=== PATIENT | female | born 1955 | race Caucasian/White ===

== ENCOUNTER 2016-06-09 10:14 | Outpatient (CLI) | payer OTHER, MEDICARE ==
[2016-06-09 11:06] LABS: AST (SGOT) 18 U/L (5-34); Bilirubin, Total 0.4 mg/dL (0.2-1.2); Calcium 9.6 mg/dL (7.8-10.44); Chloride 104 mmol/L (98-107); Cholesterol 155 mg/dL (< 200 Desired); Potassium 4.2 mmol/L (3.5-5.1); Sodium 141 mmol/L (136-145); Triglycerides 163 mg/dL (Less than 150)
[2016-06-09 11:38] LABS: ALT (SGPT) 19 U/L (0-55); Albumin 3.9 g/dL (3.4-4.8); Alkaline Phosphatase 101 U/L (40-150); BUN (Urea Nitrogen) 16 mg/dL (9.8-20.1); Calc. Creatinine Clearance 0 mL/min (70-130); Carbon Dioxide 24 mmol/L (23-31); Estimated GFR-MDRD 74; Globulin 3.3 g/dL (2.4-3.5); Glucose 173 mg/dL (80-115); HDL Cholesterol 62 mg/dL (>60 Neg Risk); Protein, Total 7.2 g/dL (5.8-8.1)
[2016-06-09 12:43] LABS: Anion Gap 17 mmol/L (10-20)
[2016-06-09 12:44] LABS: LDL Cholesterol, Calculated 60 mg/dL
== END 2016-06-09 10:15 | disposition home or self-care (01) ==
LOC: BURLAB 10:14
PROVIDERS: ATTEND Internal Medicine Cardiovascular Disease
DX: E78.00 Pure hypercholesterolemia, unspecified (principal); Z95.1 Presence of aortocoronary bypass graft; Z95.5 Presence of coronary angioplasty implant and graft
CPT/HCPCS: 36415; 80053; 80061

== ENCOUNTER 2016-12-01 09:59 | Outpatient (CLI) | payer OTHER, MEDICARE ==
[2016-12-01 11:46] LABS: ALT (SGPT) 24 U/L (8-55); AST (SGOT) 18 U/L (5-34); Albumin 3.7 g/dL (3.4-4.8); Alkaline Phosphatase 110 U/L (40-150); Anion Gap 18 mmol/L (10-20); BUN (Urea Nitrogen) 19 mg/dL (9.8-20.1); Bilirubin, Total 0.3 mg/dL (0.2-1.2); Calc. Creatinine Clearance 0 mL/min (70-130); Calcium 9.5 mg/dL (7.8-10.44); Carbon Dioxide 21 mmol/L (23-31); Chloride 106 mmol/L (98-107); Cholesterol 113 mg/dl (< 200 Desired); Estimated GFR-MDRD 78; Globulin 3.2 g/dL (2.4-3.5); Glucose 152 mg/dL (80-115); HDL Cholesterol 57 mg/dL (>60 Neg Risk); LDL Cholesterol, Calculated 19 mg/dL; Potassium 4.8 mmol/L (3.5-5.1); Protein, Total 6.9 g/dL (6.0-8.3); Sodium 140 mmol/L (136-145); Triglycerides 185 mg/dL (Less than 150)
== END 2016-12-01 10:00 | disposition home or self-care (01) ==
LOC: BURLAB 09:59
PROVIDERS: ATTEND Internal Medicine Cardiovascular Disease
DX: E78.00 Pure hypercholesterolemia, unspecified (principal)
CPT/HCPCS: 36415; 80053; 80061

== ENCOUNTER 2017-07-28 13:34 | Outpatient (CLI) | payer OTHER, MEDICARE ==
--- NOTE | 2017-07-28 17:46 | RAD ---
RIGHT FOOT THREE VIEWS: 07/28/2017 FINDINGS: No fracture or periosteal reaction is seen. The joints are unremarkable. There are no erosions seen around the joints. There is as light pes cavus deformity. The first MTP joint may have a little sw elling medial to it, but the joint itself appears normal. A very tiny calcaneal spur is suggested. IMPRESSION: No acute bony findings. POS: [facility]
== END 2017-07-28 13:35 | disposition home or self-care (01) ==
LOC: BURRAD 13:34
PROVIDERS: ATTEND Family Medicine
DX: M79.671 Pain in right foot (principal)

== ENCOUNTER 2017-08-03 09:54 | Observation (INO) | payer OTHER, MEDICARE ==
[2017-08-03 10:49] LABS: #Basophils 0.1 thou/uL (0.0-0.2); #Eosinphils 0.1 thou/uL (0.0-0.7); #Lymphocytes 1.6 thou/uL (1.20-3.40); #Monocytes 0.4 thou/uL (0.11-0.59); #Neutrophils 5.7 thou/uL (1.40-6.50); %Basophils 0.9 % (0.0-1.0); %Eosinophils 1.7 % (0.0-10.0); %Lymphocytes 20.3 % (21.0-51.0); %Monocytes 5.4 % (0.0-10.0); %Neutrophils 71.7 % (42.0-75.0); Hemoglobin 12.7 g/dL (12.0-16.0); Mean Corpuscular HGB CONC 32.9 g/dL (32.0-36.0); Mean Corpuscular Hemoglobin 28.5 pg (27.0-31.0); Mean Corpuscular Volume 86.7 fl (81.0-99.0); Mean Platelet Volume 7.5 fL (7.4-10.4); Platelet Count 280 thou/uL (130-400); RBC Distribution Width 12.5 % (11.5-14.5); Red Blood Cell (RBC) Count 4.45 mill/uL (4.20-5.40); White Blood Cell (WBC) Count 7.9 thou/uL (4.8-10.8)
[2017-08-03 11:07] LABS: ALT (SGPT) 16 U/L (8-55); AST (SGOT) 20 U/L (5-34); Alkaline Phosphatase 90 U/L (40-150); Anion Gap 16 mmol/L (10-20); BUN (Urea Nitrogen) 13 mg/dL (9.8-20.1); Bilirubin, Total 0.4 mg/dL (0.2-1.2); Calc. Creatinine Clearance 0 mL/min (70-130); Calcium 10.1 mg/dL (7.8-10.44); Carbon Dioxide 29 mmol/L (23-31); Chloride 99 mmol/L (98-107); Estimated GFR-MDRD 68; Globulin 3.9 g/dL (2.4-3.5); Glucose 186 mg/dL (80-115); Potassium 5.4 mmol/L (3.5-5.1); Protein, Total 7.9 g/dL (6.0-8.3); Sodium 139 mmol/L (136-145)
[2017-08-03 11:09] LABS: CKMB 0.7 ng/mL (0-6.6); Troponin I Less than 0.010 ng/mL (< 0.028)
[2017-08-03] MEDS ORDERED: Furosemide 100 MG/10 ML VIAL ONE (11:11)
[2017-08-03 11:17] LABS: Bilirubin Negative (Negative); Blood, Urine Trace (Negative); Clarity Clear (Clear); Glucose, Urine (Dipstick) Negative (Negative); Leukocyte Negative (Negative); Nitrite Negative (Negative); Protein, Urine (Dipstick) Negative (Neg-Trace); Specific Gravity, Urine 1.015 (1.005-1.030); Urobilinogen 0.2 mg/dL (0.2-1.0)
[2017-08-03 11:19] LABS: Bacteria/HPF Rare-Few HPF (None Seen); RBC/HPF 0-3 HPF (0-3); Squamous Epithelial 0-3 HPF (0-3); WBC/HPF 0-3 HPF (0-3)
[2017-08-03] MEDS ORDERED: Acetaminophen 325 MG TAB PO PRN (13:31)
[2017-08-03] MEDS ORDERED: Ondansetron HCl/PF 4 MG/2 ML Vial IVP PRN (13:31)
[2017-08-03] MEDS ORDERED: TRAMADOL HCL PO PRN (13:51)
[2017-08-03] MEDS ORDERED: TABL PO PRN (13:51)
[2017-08-03] MEDS ORDERED: ACETAMINOPHEN PO PRN (13:51)
[2017-08-03] MEDS ORDERED: [UNRECOGNIZED DRUG - OTHER] PO PRN (13:51)
[2017-08-03] MEDS ORDERED: EVOLOCUMAB SQ SCH (14:00)
[2017-08-03] MEDS: Ondansetron ODT 4 MG TAB SL PRN (16:05)
--- NOTE | 2017-08-03 17:05 | RAD ---
PORTABLE CHEST: Date: 08/03/17 An AP portable film at 1038 hours is compared with a 06/25/17 study from [facility] al. FINDINGS: The AICD remains in place. Mild cardiomegaly is present, but there are no convincing findings of CHF. No effusions or infiltrates were seen. Trachea is midline. IMPRESSION: Mild cardiomegaly. POS: HOME
[2017-08-03 17:09] VITALS: BMI 614550.6
[2017-08-03] MEDS: Carvedilol 25 MG TAB PO SCH (17:49)
--- NOTE | 2017-08-03 19:05 | HP ---
DATE OF ADMISSION: 08/03/2017 CHIEF COMPLAINT: Dyspnea. HISTORY OF PRESENT ILLNESS: 62-year-old female with underlying history of combined systolic and diastolic congestive heart failure with a fairly significant cardiac history requiring cardiac stents, cardiac bypass and most recently in May of this year, ICD and pacemaker placement. She is followed by Dr. Rascon with next appointment scheduled for 09/02/2017. She presented to [facility] Emergency Department this morning with complaints of worsening dyspnea over the last 2-3 days. She is a nonsmoker with no significant pulmonary history. She states that she weighs herself regularly at home and does not overindulge on fluid intake. She denies noticing any significant increase in her weight. Workup in the emergency department revealed a normal CBC and cardiac enzymes; however, her BNP was elevated at 536. Urinalysis was normal. Chest x-ray revealed mild cardiomegaly. Patient is normally on 40 mg p.o. Lasix daily at home and reports good compliance with this medication. She normally sleeps either in her recliner or in her bed with three pillows. The patient has been admitted for an Obs admission for CHF exacerbation and has been started on IV Lasix accordingly. PAST MEDICAL HISTORY: Includes hypertension, type 2 diabetes mellitus. Combined systolic and diastolic congestive heart failure, anxiety, depression, insomnia. PAST SURGICAL HISTORY: Appendectomy, total hysterectomy, cardiac bypass, breast reduction, cholecystectomy, heart catheterization and 2 stents in 2015. ICD and pacemaker placement 05/2017. SOCIAL HISTORY: Nonsmoker. No ETOH or illicit drug use. She lives at home with her . ALLERGIES: BACTRIM, CIPRO, KEFLEX. FAMILY HISTORY: Noncontributory. CURRENT MEDICATIONS: Metformin 500 mg p.o. daily, Zoloft 50 mg p.o. daily, Elavil 25 mg p.o. at bedtime, Brilinta 90 mg p.o. b.i.d., furosemide 40 mg p.o. daily, amlodipine 5 mg p.o. daily, Coreg 25 mg p.o. b.i.d., lisinopril 20 mg p.o. b.i.d., Repatha 140 mg per mL, Zofran 4 mg sublingual q.8 hours p.r.n., Ambien 10 mg p.o. at bedtime. REVIEW OF SYSTEMS: General: The patient denies fever, chills or diaphoresis. Ear, Nose, and Throat: Denies sore throat, nasal drainage or congestion. Cardiovascular: Denies chest pain or palpitations. Respiratory: Complains of shortness of breath. Denies cough. Gastrointestinal: Denies abdominal pain, nausea, vomiting, diarrhea or constipation. Genitourinary: Denies dysuria or hematuria. Musculoskeletal: Denies joint swelling. Dermatologic: Denies rash. Neurologic: Denies headache. LABORATORY DATA: White blood cell count 7.9, H&H is 12.7 and 38.6, platelets 280. Sodium 139, potassium 5.4, BUN is 13, creatinine 0.84, GFR of 68, glucose 186. Normal LFTs, normal cardiac enzymes. BNP 536.1. UA shows no bacteria. IMAGING: Chest x-ray shows mild cardiomegaly with no effusions or infiltrates. PHYSICAL EXAMINATION: VITAL SIGNS: Temperature is 98.2, pulse is 68, respiratory rate is 18, oxygen is 99% on 2 liters, blood pressure is 164/80. GENERAL: Patient is alert and oriented, in no acute distress, obese. HEENT: Eyes, pupils are equal, round, and reactive to light. Extraocular muscles are intact. Sclerae are clear. Head, eyes, ears, nose and throat is within normal limits. NECK: Supple, no lymphadenopathy, no meningeal signs. CARDIOVASCULAR: Regular rate and rhythm, no murmurs, rubs or gallops. LUNGS: Clear to auscultation bilaterally without wheezes, rales or rhonchi. ABDOMEN: Soft, nontender to palpation. No organomegaly. EXTREMITIES: No clubbing, cyanosis or edema. SKIN: Healed approximately 6 cm surgical site to the left chest wall. No rash. NEUROLOGIC: No focal deficits. Cranial nerves II-XII are grossly intact. ASSESSMENT AND PLAN: 1. Congestive heart failure exacerbation. We will continue the patient's IV Lasix with daily weight and fluid restriction to 1.5 liters daily. We will follow up BNP in the morning. Chest x-ray reassuring. 12/31/16 TTE shows normal left ventricular dimension, moderately reduced left ventricular function; left ventricular EF 30-35%; apical wall akinesis; mild mitral valve regurgitation, MV inflow pattern consistent with diastolic dysfunction; mild tricuspid valve regurgitation. 2. Hypertension. Patient is hemodynamically stable. We will resume her usual home blood pressure medications. 3. Type 2 diabetes mellitus. The patient has been started on consistent carbohydrate diet. We will resume metformin. Plan for a.c. and at bedtime, glucose checks. 4. Anxiety with depression. We will continue patient's SSRI. 5. Obesity. The patient counseled on the need for weight loss. 6. Hyperkalemia. We will reevaluate BNP in the morning expect that this will normalize with her receiving Lasix. 7. Prophylaxis. Patient is on Brilinta and we will add famotidine for gastrointestinal prophylaxis. D/C summary: Pt was admitted overnight and effectively diuresed lowering her BNP into the 230's. Her respiratory status is back to baseline and she is satting well on room air. She feels amenable to d/c home and continue her usual medications. She may f/u in clinic with myself and her ceramic chemist, Dr. Rascon. CHAD
[2017-08-03] MEDS ORDERED: TICAGRELOR 90 MG PO SCH (21:00)
[2017-08-03] MEDS ORDERED: Zolpidem Tartrate 5 MG TAB PO SCH (21:00)
[2017-08-03] MEDS ORDERED: Amitriptyline HCl 25 MG TAB PO SCH (21:00)
[2017-08-03] MEDS: Furosemide 40 MG/4 ML VIAL SLOW IVP SCH (21:02)
[2017-08-03] MEDS: Lisinopril 10 MG TAB PO SCH (21:03)
[2017-08-03] MEDS: Famotidine 20 MG TAB PO SCH (21:03)
[2017-08-03] MEDS: TICAGRELOR 90 MG TABLET PO SCH (21:06)
[2017-08-04] MEDS: Indomethacin 25 mg Capsule PO SCH ×2 (00:20→08:19)
[2017-08-04] MEDS: Ondansetron ODT 4 MG TAB SL PRN (00:26)
[2017-08-04] MEDS: Furosemide 40 MG/4 ML VIAL SLOW IVP SCH (04:11)
[2017-08-04 05:42] LABS: #Basophils 0.1 thou/uL (0.0-0.2); #Eosinphils 0.1 thou/uL (0.0-0.7); #Lymphocytes 2.2 thou/uL (1.20-3.40); #Monocytes 0.8 thou/uL (0.11-0.59); #Neutrophils 7.2 thou/uL (1.40-6.50); %Basophils 0.8 % (0.0-1.0); %Eosinophils 1.3 % (0.0-10.0); %Monocytes 8.1 % (0.0-10.0); %Neutrophils 68.9 % (42.0-75.0); Hemoglobin 14.4 g/dL (12.0-16.0); Mean Corpuscular HGB CONC 34.8 g/dL (32.0-36.0); Mean Corpuscular Volume 86.2 fl (81.0-99.0); Mean Platelet Volume 7.2 fL (7.4-10.4); Platelet Count 279 thou/uL (130-400); RBC Distribution Width 12.4 % (11.5-14.5); Red Blood Cell (RBC) Count 4.81 mill/uL (4.20-5.40); White Blood Cell (WBC) Count 10.4 thou/uL (4.8-10.8)
[2017-08-04 05:47] LABS: Anion Gap 18 mmol/L (10-20); BUN (Urea Nitrogen) 12 mg/dL (9.8-20.1); Calc. Creatinine Clearance 109 mL/min (70-130); Calcium 10.4 mg/dL (7.8-10.44); Carbon Dioxide 25 mmol/L (23-31); Chloride 98 mmol/L (98-107); Estimated GFR-MDRD 67; Glucose 134 mg/dL (80-115); Potassium 4.1 mmol/L (3.5-5.1); Sodium 137 mmol/L (136-145)
[2017-08-04] MEDS ORDERED: metFORMIN 500 MG TAB PO SCH (08:00)
[2017-08-04] MEDS: Lisinopril 10 MG TAB PO SCH (08:16)
[2017-08-04] MEDS: Famotidine 20 MG TAB PO SCH (08:17)
[2017-08-04] MEDS: Carvedilol 25 MG TAB PO SCH (08:17)
[2017-08-04] MEDS: TICAGRELOR 90 MG TABLET PO SCH (08:18)
[2017-08-04] MEDS ORDERED: Non-Formulary Item 1 EACH (Sertraline Hcl [Zoloft] 50 MG) PO SCH (09:00)
[2017-08-04] MEDS ORDERED: Aspirin 81 mg Enteric Coated Tablet PO SCH (09:00)
[2017-08-04] MEDS ORDERED: Amlodipine 5 MG TAB PO SCH (09:00)
[2017-08-04] MEDS ORDERED: Colchicine 0.6 MG TAB PO SCH (09:00)
[2017-08-04] MEDS ORDERED: COLCHICINE PO SCH (09:00)
[2017-08-04 10:01] VITALS: BP 130/70; TEMP 98
== END 2017-08-04 08:50 | disposition home or self-care (01) ==
LOC: BURERS 09:54 → BURMED 11:40
PROVIDERS: ADMIT Family Medicine; ATTEND Family Medicine
DX: I11.0 Hypertensive heart disease with heart failure (principal); I50.41 Acute combined systolic (congestive) and diastolic (congestive) heart failure; E11.9 Type 2 diabetes mellitus without complications; F41.9 Anxiety disorder, unspecified; F32.9 Major depressive disorder, single episode, unspecified; G47.00 Insomnia, unspecified; E66.9 Obesity, unspecified; E87.5 Hyperkalemia; Z87.891 Personal history of nicotine dependence; Z95.1 Presence of aortocoronary bypass graft; Z95.5 Presence of coronary angioplasty implant and graft; Z95.810 Presence of automatic (implantable) cardiac defibrillator; Z79.84 Long term (current) use of oral hypoglycemic drugs; Z79.02 Long term (current) use of antithrombotics/antiplatelets; Z79.899 Other long term (current) drug therapy; Z91.018 Allergy to other foods; Z88.1 Allergy status to other antibiotic agents; Z88.2 Allergy status to sulfonamides; Z88.8 Allergy status to other drugs, medicaments and biological substances
CPT/HCPCS: 36415; 36416; 71045; 80048; 80053; 81003; 81015; 82553; 83880; 84484; 85025; 93005; 94760; 96374; 96376; A4216; G0378; J1940; Q0162

== ENCOUNTER 2017-10-04 11:52 | Emergency (ER) | payer OTHER, MEDICARE ==
[2017-10-04 12:35] LABS: #Basophils 0.1 thou/uL (0.0-0.2); #Eosinphils 0.1 thou/uL (0.0-0.7); #Lymphocytes 1.3 thou/uL (1.20-3.40); #Monocytes 0.5 thou/uL (0.11-0.59); #Neutrophils 6.3 thou/uL (1.40-6.50); %Basophils 0.8 % (0.0-1.0); %Eosinophils 1.5 % (0.0-10.0); %Lymphocytes 15.3 % (21.0-51.0); %Monocytes 5.9 % (0.0-10.0); %Neutrophils 76.6 % (42.0-75.0); Hemoglobin 10.7 g/dL (12.0-16.0); Mean Corpuscular HGB CONC 35.1 g/dL (32.0-36.0); Mean Corpuscular Hemoglobin 28.5 pg (27.0-31.0); Mean Corpuscular Volume 81.4 fL (78.0-98.0); Mean Platelet Volume 6.5 fL (7.4-10.4); Platelet Count 267 thou/uL (130-400); RBC Distribution Width 13.2 % (11.5-14.5); Red Blood Cell (RBC) Count 3.77 mill/uL (4.20-5.40); White Blood Cell (WBC) Count 8.3 thou/uL (4.8-10.8)
[2017-10-04] MEDS ORDERED: Nitroglycerin 50 MG/250 ML BOT 250 ML ONE (12:39)
[2017-10-04] MEDS ORDERED: Furosemide 100 MG/10 ML VIAL ONE (12:39)
[2017-10-04 12:50] LABS: ALT (SGPT) 12 U/L (8-55); AST (SGOT) 12 U/L (5-34); Albumin 3.7 g/dL (3.4-4.8); Alkaline Phosphatase 97 U/L (40-150); Anion Gap 16 mmol/L (10-20); BUN (Urea Nitrogen) 21 mg/dL (9.8-20.1); Bilirubin, Total 0.3 mg/dL (0.2-1.2); Calc. Creatinine Clearance 0 mL/min (70-130); Carbon Dioxide 28 mmol/L (23-31); Chloride 105 mmol/L (98-107); Estimated GFR-MDRD 66; Globulin 3.8 g/dL (2.4-3.5); Glucose 118 mg/dL (80-115); Potassium 4.6 mmol/L (3.5-5.1); Protein, Total 7.5 g/dL (6.0-8.3); Sodium 144 mmol/L (136-145)
[2017-10-04 13:37] LABS: CKMB 0.6 ng/mL (0-6.6); Troponin I 0.012 ng/mL (< 0.028)
[2017-10-04] MEDS ORDERED: Acetaminophen 500 MG TAB ONE (14:06)
--- NOTE | 2017-10-04 20:28 | RAD ---
AP PORTABLE CHEST: 10/04/2017 1211 HOURS COMPARISON: 08/03/2017 FINDINGS: Mild cardiomegaly is about the same as before. The cardiac pacer remains in place. There is no loba r infiltrate or effusion seen. There is no gross congestive change, even though the vessels seem haydee r so slightly more prominent than they were before. IMPRESSION: No definite acute findings. POS: HOME
== END 2017-10-04 14:58 | disposition short-term general hospital (02) ==
LOC: BURERS 11:52
DX: I11.0 Hypertensive heart disease with heart failure (principal); I50.1 Left ventricular failure, unspecified; I25.2 Old myocardial infarction; E11.9 Type 2 diabetes mellitus without complications; I10 Essential (primary) hypertension; F32.9 Major depressive disorder, single episode, unspecified; Z87.891 Personal history of nicotine dependence; Z79.899 Other long term (current) drug therapy; Z79.84 Long term (current) use of oral hypoglycemic drugs
CPT/HCPCS: 36415; 71045; 80053; 82553; 83605; 83880; 84484; 85025; 85379; 93005; 94760; 96365; 96366; 96375; J1940

== ENCOUNTER 2018-01-06 10:27 | Outpatient (CLI) | payer OTHER, MEDICARE ==
--- NOTE | 2018-01-06 12:33 | RAD ---
THREE VIEWS LEFT FOOT: COMPARISON: None. HISTORY: Left foot cellulitis and pain. FINDINGS: Three views left foot show no evidence of acute fracture or dislocation. Moderate diffuse soft tissu e swelling is seen. No degenerative changes are present. IMPRESSION: Unremarkable exam. POS: [facility]
[2018-01-06 17:34] LABS: #Eosinphils 0.1 thou/uL (0.0-0.7); #Monocytes 0.6 thou/uL (0.11-0.59); #Neutrophils 6.5 thou/uL (1.40-6.50); %Basophils 0.3 % (0.0-1.0); %Eosinophils 0.8 % (0.0-10.0); %Lymphocytes 21.7 % (21.0-51.0); %Monocytes 6.5 % (0.0-10.0); %Neutrophils 70.6 % (42.0-75.0); Hemoglobin 11.9 g/dL (12.0-16.0); Mean Corpuscular HGB CONC 31.7 g/dL (32.0-36.0); Mean Corpuscular Hemoglobin 29.3 pg (27.0-31.0); Mean Corpuscular Volume 92.6 fL (78.0-98.0); Mean Platelet Volume 8.4 fL (7.4-10.4); Platelet Count 321 thou/uL (130-400); RBC Distribution Width 12.7 % (11.5-14.5); Red Blood Cell (RBC) Count 4.07 mill/uL (4.20-5.40); White Blood Cell (WBC) Count 9.1 thou/uL (4.8-10.8)
[2018-01-06 17:36] LABS: ALT (SGPT) 11 U/L (8-55); AST (SGOT) 14 U/L (5-34); Albumin 4.1 g/dL (3.4-4.8); Alkaline Phosphatase 88 U/L (40-150); Anion Gap 14 mmol/L (10-20); BUN (Urea Nitrogen) 16 mg/dL (9.8-20.1); Bilirubin, Total 0.3 mg/dL (0.2-1.2); Calc. Creatinine Clearance 0 mL/min (70-130); Calcium 9.6 mg/dL (7.8-10.44); Carbon Dioxide 29 mmol/L (23-31); Cardiac Risk 2.1 (Less than 4.5); Chloride 102 mmol/L (98-107); Cholesterol 126 mg/dl (< 200 Desired); Estimated GFR-MDRD 75; Globulin 3.4 g/dL (2.4-3.5); Glucose 129 mg/dL (80-115); HDL Cholesterol 59 mg/dL (>60 Neg Risk); LDL Cholesterol, Calculated 39 mg/dL; Potassium 4.2 mmol/L (3.5-5.1); Protein, Total 7.5 g/dL (6.0-8.3); Sodium 141 mmol/L (136-145); Triglycerides 140 mg/dL (Less than 150)
[2018-01-06 18:23] LABS: Hemoglobin A1c 6.3 % (4.0-6.0)
== END 2018-01-06 10:28 | disposition home or self-care (01) ==
LOC: BURRAD 10:27
PROVIDERS: ATTEND Family Medicine
DX: Z13.6 Encounter for screening for cardiovascular disorders (principal); L03.119 Cellulitis of unspecified part of limb; E11.9 Type 2 diabetes mellitus without complications; I10 Essential (primary) hypertension
CPT/HCPCS: 36415; 80053; 80061; 83036; 84443; 85025

== ENCOUNTER 2020-10-16 07:04 | Emergency (ER) | payer BC, MEDICARE ==
[2020-10-16] MEDS ORDERED: Furosemide 40 MG/4 ML VIAL ONE (07:41)
[2020-10-16] MEDS ORDERED: Acetaminophen 500 MG TAB ONE (07:52)
[2020-10-16 07:54] LABS: White Blood Cell (WBC) Count 8.7 thou/uL (4.8-10.8)
[2020-10-16 07:55] LABS: #Monocytes 0.3 thou/uL (0.11-0.59); #Neutrophils 7.6 thou/uL (1.40-6.50); %Basophils 0.2 % (0.0-1.0); %Eosinophils 0.1 % (0.0-10.0); %Lymphocytes 9.1 % (21.0-51.0); %Monocytes 3.3 % (0.0-10.0); %Neutrophils 87.4 % (42.0-75.0); Hemoglobin 12.7 g/dL (12.0-16.0); MDiff Complete? YES; Manual Diff?? NO; Mean Corpuscular HGB CONC 31.7 g/dL (32.0-36.0); Mean Corpuscular Hemoglobin 29.6 pg (27.0-31.0); Mean Corpuscular Volume 93.2 fL (78.0-98.0); Platelet Count 240 thou/uL (130-400); RBC Distribution Width 13.1 % (11.5-14.5); Red Blood Cell (RBC) Count 4.29 mill/uL (4.20-5.40)
[2020-10-16 07:59] LABS: ALT (SGPT) 24 U/L (8-55); AST (SGOT) 33 U/L (5-34); Albumin 3.6 g/dL (3.4-4.8); Alkaline Phosphatase 61 U/L (40-110); Anion Gap 18 mmol/L (10-20); BUN (Urea Nitrogen) 40 mg/dL (9.8-20.1); Bilirubin, Total 0.2 mg/dL (0.2-1.2); Calc. Creatinine Clearance 0 mL/min (70-130); Calcium 8.4 mg/dL (7.8-10.44); Carbon Dioxide 22 mmol/L (23-31); Chloride 104 mmol/L (98-107); Globulin 3.9 g/dL (2.4-3.5); Glucose 149 mg/dL (80-115); Potassium 4.3 mmol/L (3.5-5.1); Protein, Total 7.5 g/dL (5.8-8.1); Sodium 140 mmol/L (136-145)
[2020-10-16] MEDS ORDERED: Levofloxacin 500 mg/D5W 100 ml Premix Bag ONE (08:16)
== END 2020-10-16 09:22 | disposition short-term general hospital (02) ==
LOC: BURERS 07:04
DX: U07.1 COVID-19 (principal); I50.9 Heart failure, unspecified; Z79.899 Other long term (current) drug therapy; Z79.84 Long term (current) use of oral hypoglycemic drugs; E78.5 Hyperlipidemia, unspecified; E78.00 Pure hypercholesterolemia, unspecified; I25.2 Old myocardial infarction; E11.9 Type 2 diabetes mellitus without complications; I11.0 Hypertensive heart disease with heart failure; Z87.891 Personal history of nicotine dependence
CPT/HCPCS: 36415; 71045; 80053; 83605; 83880; 84484; 85025; 87040; 93005; 94760; 96374; 96375; J1940; J1956